=== PATIENT | male | born 1965 | race Caucasian/White ===

== ENCOUNTER → 2017-01-13 | Outpatient (CLI) | payer OTHER ==
[2017-01-13 12:44] LABS: BLOOD UREA NITROGEN 23 mg/dl (7-18); BUN/CREATININE RATIO 26.9 (10-20); CALCIUM 8.3 mg/dl (8.5-10.1); CARBON DIOXIDE 24 mmol/L (21-32); CHLORIDE 109 mmol/L (98-107); CHOLESTEROL 140 mg/dl (0-200); CREATININE 0.87 mg/dl (0.60-1.40); GLUCOSE 108 mg/dl (70-99); POTASSIUM 3.8 mmol/L (3.5-5.1); SODIUM 143 mmol/L (136-145)
[2017-01-13 12:47] LABS: CHOLESTEROL/HDL RATIO 3.3; HDL CHOLESTEROL 42 mg/dl; LDL CHOLESTEROL CALCULATED 69 mg/dl; TRIGLYCERIDES 144 mg/dl (0-150); VERY LOW DENSITY LIPOPROT CALC 29 mg/dl
== END | disposition home or self-care (01) ==
LOC: C.LABPBG 08:40
PROVIDERS: ATTEND Physician Assistant
DX: E78.5 Hyperlipidemia, unspecified (principal); I10 Essential (primary) hypertension

== ENCOUNTER → 2017-07-15 | Outpatient (CLI) | payer OTHER ==
[2017-07-15 17:39] LABS: BLOOD UREA NITROGEN 15 mg/dl (7-18); BUN/CREATININE RATIO 18.6 (10-20); CALCIUM 9.2 mg/dl (8.5-10.1); CARBON DIOXIDE 24 mmol/L (21-32); CHLORIDE 107 mmol/L (98-107); CHOLESTEROL 195 mg/dl (0-200); CREATININE 0.79 mg/dl (0.60-1.40); GLUCOSE 86 mg/dl (70-99); POTASSIUM 4.1 mmol/L (3.5-5.1); SODIUM 140 mmol/L (136-145); TRIGLYCERIDES 237 mg/dl (0-150); VERY LOW DENSITY LIPOPROT CALC 47 mg/dl
[2017-07-15 17:42] LABS: CHOLESTEROL/HDL RATIO 3.9; HDL CHOLESTEROL 50 mg/dl; LDL CHOLESTEROL CALCULATED 98 mg/dl
== END | disposition home or self-care (01) ==
LOC: C.LABPBG 13:31
PROVIDERS: ATTEND Physician Assistant
DX: E78.5 Hyperlipidemia, unspecified (principal); I10 Essential (primary) hypertension

== ENCOUNTER → 2018-06-01 | Outpatient (CLI) | payer OTHER ==
[2018-06-01 17:37] LABS: ALBUMIN 3.9 gm/dl (3.4-5.0); ALKALINE PHOSPHATASE 101 U/L (45-117); ALT/SGPT 35 U/L (12-78); AST/SGOT 17 U/L (15-37); BLOOD UREA NITROGEN 21 mg/dl (7-18); CALCIUM 8.8 mg/dl (8.5-10.1); CARBON DIOXIDE 25 mmol/L (21-32); CHOLESTEROL 171 mg/dl (0-200); CREATININE 0.87 mg/dl (0.60-1.40); GLUCOSE 98 mg/dl (70-99); LDL CHOLESTEROL CALCULATED 95 mg/dl; POTASSIUM 3.9 mmol/L (3.5-5.1); SODIUM 140 mmol/L (136-145); TOTAL PROTEIN 7.4 gm/dl (6.4-8.2)
[2018-06-01 19:35] LABS: BASO % 0.5 %; BASO ABS # 0.03 K/uL (0-0.2); EOS % 1.9 %; EOS ABS # 0.11 K/uL (0-0.5); HEMATOCRIT 47.5 % (42-52); HEMOGLOBIN 16.6 g/dL (14.0-18.0); IG# 0.04 K/uL (0.00-0.02); LYMPH % 29.6 %; LYMPH ABS # 1.69 K/uL (1.2-3.4); MEAN CELL VOLUME 85.9 fL (80-100); MEAN CORPUSCULAR HGB CONC 34.9 g/dl (32-36); MEAN PLATELET VOLUME 9.3 fL (7.4-10.4); MONO % 9.6 %; MONO ABS # 0.55 K/uL (0.11-0.59); NEUT % 57.7 %; NEUT ABS # 3.28 K/uL (1.4-6.5); PLATELET COUNT 225 K/uL (130-400); RED CELL DISTRIBUTION WIDTH CV 13.5 % (11.5-14.5); RED CELL DISTRIBUTION WIDTH SD 42.3 fL (36.4-46.3)
[2018-06-02 05:53] LABS: HEMOGLOBIN A1C 5.7 % (4.5-5.6)
== END | disposition home or self-care (01) ==
LOC: C.LABPBG 11:28
PROVIDERS: ATTEND Family Medicine
DX: R42 Dizziness and giddiness (principal); R51 Headache; R61 Generalized hyperhidrosis; I10 Essential (primary) hypertension